=== PATIENT | male | born 1970 | race Two or more races ===

== ENCOUNTER 2017-03-20 22:27 | Emergency (ER) | payer OTHER ==
[~2017-03-20] VITALS: Ht 180.3 cm; Wt 77.1 kg
[2017-03-20 22:31] VITALS: BP 130/78
== END 2017-03-21 02:37 | disposition left against medical advice (07) ==
LOC: ER 22:27
DX: F41.9 Anxiety disorder, unspecified (principal); Z53.21 Procedure and treatment not carried out due to patient leaving prior to being seen by health care provider
CPT/HCPCS: 93005